=== PATIENT | male | born 1965 | race Caucasian/White ===

== ENCOUNTER 2020-04-16 11:59 | Emergency (ER) | payer SELFPAY ==
[~2020-04-16] VITALS: Ht 180.3 cm; Wt 88.6 kg
[2020-04-16 12:13] VITALS: BP 128/77
== END 2020-04-16 12:24 | disposition home or self-care (01) ==
LOC: EMS 12:02
DX: Z03.818 Encounter for observation for suspected exposure to other biological agents ruled out (principal)
CPT/HCPCS: 99283; U0003

== ENCOUNTER 2022-09-15 10:14 | Day surgery (SDC) | payer OTHER ==
[2022-09-13 10:23] LABS: COVID AG,FIA SOURCE NASAL SWAB
[~2022-09-15] VITALS: Ht 177.8 cm; Wt 90.5 kg
[~2022-09-15 10:14] MED LIST: SODIUM CHLORIDE 0.9% 1,000 ML ONE
[2022-09-15] MEDS ORDERED: ACETAMINOPHEN 1000 MG/ISO-OSM 100 ML IV ONE (11:32)
[2022-09-15] MEDS ORDERED: SODIUM CHLORIDE 0.9% 1,000 ML IV ONE (12:30)
== END 2022-09-15 14:00 | disposition home or self-care (01) ==
LOC: SURGERY 10:14
PROVIDERS: ATTEND Internal Medicine Gastroenterology
DX: Z12.11 Encounter for screening for malignant neoplasm of colon (principal); D12.5 Benign neoplasm of sigmoid colon; K64.8 Other hemorrhoids; K64.0 First degree hemorrhoids; Z20.822 Contact with and (suspected) exposure to COVID-19
CPT/HCPCS: 87426; 45385; C9803; C1769; J7030; J0131